=== PATIENT | male | born 1990 | race Caucasian/White ===

== ENCOUNTER 2018-08-27 10:07 | Emergency (ER) | payer OTHER ==
--- NOTE | 2018-08-27 10:56 | ED ---
Adult Trauma - HPI Summary HPI Summary: 28-year-old male presents after fall today. He states that he landed on his face and his knees. Denies any loose teeth. He denies any headache. No nausea or vomiting. Denies any dizziness. Denies any jaw pain. He states that he did pass out. He had seizure-like activity. He had a seizure once when was younger. Has history of CP. Denies any chest pain or shortness of breath. Fall was mechanical fall. Denies any other injury. - History of Current Complaint Chief Complaint: EDFall Stated Complaint: FALL PER EMS Time Seen by Provider: 08/27/18 10:23 Pain Intensity: 3 - Allergy/Home Medications Allergies/Adverse Reactions: Allergies Allergy/AdvReac Type Severity Reaction Status Date / Time No Known Allergies Allergy Verified 12/14/16 12:01 PMH/Surg Hx/FS Hx/Imm Hx Endocrine/Hematology History: Denies: Hx Anticoagulant Therapy Respiratory History: Denies: Hx Asthma Infectious Disease History: No Infectious Disease History: Denies: Traveled Outside the in Last 30 Days - Family History Known Family History: Positive: Non-Contributory - Social History Substance Use Type: Reports: None Smoking Status (MU): Never Smoked Tobacco Review of Systems Negative: Fever Negative: Chest Pain Negative: Shortness Of Breath Positive: Myalgia - knee pain Positive: Other - abrasion Neurological: Other - syncope All Other Systems Reviewed And Are Negative: Yes Physical Exam Triage Information Reviewed: Yes Vital Signs On Initial Exam: Initial Vitals Temp Pulse Resp BP Pulse Ox 97.9 F 105 16 122/83 99 08/27/18 10:10 08/27/18 10:10 08/27/18 10:10 08/27/18 10:10 08/27/18 10:10 Vital Signs Reviewed: Yes Appearance: Positive: Well-Appearing Skin: Positive: Warm, Dry, Other - abrasion to upper lip Head/Face: Positive: Normal Head/Face Inspection Eyes: Positive: Normal, Conjunctiva Clear ENT: Positive: Pharynx normal Respiratory/Lung Sounds: Positive: Clear to Auscultation, Breath Sounds Present Cardiovascular: Positive: Normal, RRR Abdomen Description: Positive: Nontender, Soft Bowel Sounds: Positive: Present Musculoskeletal: Positive: Strength/ROM Intact - knee, Other - tenderness knee, good pulses Neurological: Positive: Normal Psychiatric: Positive: Normal Diagnostics - Vital Signs Vital Signs Temp Pulse Resp BP Pulse Ox 08/27/18 10:10 97.9 F 105 16 122/83 99 - Laboratory Result Diagrams: 08/27/18 11:15 08/27/18 11:15 Lab Statement: Any lab studies that have been ordered have been reviewed, and results considered in the medical decision making process. - Radiology knee Radiology Interpretation Completed By: Radiologist Summary of Radiographic Findings: IMPRESSION: No fracture of either knee is noted. No joint effusion is noted. - EKG No standard instances Cardiac Rate: NL EKG Rhythm: Sinus Rhythm ST Segment: Normal Summary of EKG Findings: sinus rhythm Adult Trauma Course/Dx - Course Course Of Treatment: 28-year-old male presents after fall today. He states that he landed on his face and his knees. Denies any loose teeth. He denies any headache. No nausea or vomiting. Denies any dizziness. Denies any jaw pain. He states that he did pass out. He had seizure-like activity. He had a seizure once when was younger. Has history of CP. Denies any chest pain or shortness of breath. Fall was mechanical fall. Denies any other injury. On exam has abrasion noted to lip. No LOC. normal neuro exam. nontender jaw. Tenderness bilateral knees. as has CP when passed out likely just had spastic movement. wbc normal. tsh normal. ekg shows sinus rhythm. We'll have follow-up with primary. Patient understands agrees with plan. - Diagnoses Differential Diagnosis/HQI/PQRI: Positive: Abrasion(s), Contusion(s), Laceration (s) Provider Diagnoses: Fall, Facial abrasion, Knee pain, Syncope Discharge - Sign-Out/Discharge Documenting (check all that apply): Patient Departure Patient Received Moderate/Deep Sedation with Procedure: No - Discharge Plan Condition: Good Disposition: HOME Patient Education Materials: Syncope (ED), R.I.C.E. Treatment (ED) Referrals: No Primary Care Phys,NOPCP [Primary Care Provider] - Additional Instructions: Take Tylenol or ibuprofen every 6 hours as needed for pain Apply ice, rest, elevate keep abrasion clean Follow up with rachel Return to ED if develop any new or worsening symptoms - Billing Disposition and Condition Condition: GOOD Disposition: Home
[2018-08-27 11:26] LABS: ABS Eosinophils 0.1 10^3/ul (0-0.6); ABS Lymphocytes 0.7 10^3/ul (1.0-4.8); ABS Monocytes 0.3 10^3/ul (0-0.8); ABS Neutrophils 2.2 10^3/ul (1.5-7.7); Eosinophil % 4.1 %; Hematocrit 42 % (42-52); Hemoglobin 14.4 g/dL (14.0-18.0); Lymphocyte % 20.5 %; Mean Corpuscular HGB Conc 34 g/dL (31-36); Mean Corpuscular Hemoglobin 31 pg (27-31); Mean Corpuscular Volume 90 fL (80-94); Mean Platelet Volume 7.6 fL (7.4-10.4); Platelet Count 205 10^3/uL (150-450); Red Blood Count 4.67 10^6 /uL (4.18-5.48); Red Cell Distribution Width 12 % (10.5-15); White Blood Count 3.4 10^3/uL (3.5-10.8)
[2018-08-27 11:44] LABS: Albumin 4.3 g/dL (3.2-5.2); Albumin/Globulin Ratio 1.4 (1-3); BUN/Creatinine Ratio 18.8 (8-20); Calcium 9.8 mg/dL (8.6-10.3); EGFR African American 106.4 (>60); Globulin 3.1 g/dL (2-4); Magnesium 1.9 mg/dL (1.9-2.7); Total Bilirubin 0.6 mg/dL (0.2-1.0); Total Protein 7.4 g/dL (6.4-8.9)
[2018-08-27 12:18] LABS: TSH (Thyroid Stimulating Horm) 1.54 mcIU/mL (0.34-5.60)
[2018-08-27 13:08] LABS: Urine Appearance Cloudy; Urine Bilirubin Negative (Negative); Urine Blood Negative (Negative); Urine Color Yellow; Urine Glucose Negative (Negative); Urine Ketones Negative (Negative); Urine Nitrite Negative (Negative); Urine Protein Negative (Negative); Urine Specific Gravity 1.012 (1.010-1.030); Urine Urobilinogen Negative (Negative)
[2018-08-27 13:11] VITALS: BP 148/92
== END 2018-08-27 13:11 | disposition home or self-care (01) ==
LOC: ED 10:07
DX: S00.81XA Abrasion of other part of head, initial encounter (principal); M25.569 Pain in unspecified knee; R55 Syncope and collapse; W19.XXXA Unspecified fall, initial encounter; Y92.9 Unspecified place or not applicable
CPT/HCPCS: 36415; 80053; 81003; 83605; 83735; 84443; 85025; 93005; 99283